=== PATIENT | male | born 1945 | race Caucasian/White ===

== ENCOUNTER 2020-07-07 16:35 | Emergency (ER) | payer MEDICARE, OTHER ==
[~2020-07-07] VITALS: Ht 177.8 cm; Wt 117.9 kg
== END 2020-07-07 20:15 | disposition home or self-care (01) ==
LOC: ER 18:13
DX: R50.9 Fever, unspecified (principal); R05 Cough; J40 Bronchitis, not specified as acute or chronic; I10 Essential (primary) hypertension; M10.9 Gout, unspecified
CPT/HCPCS: 71046

== ENCOUNTER 2020-09-05 11:21 | Emergency (ER) | payer MEDICARE, OTHER ==
[~2020-09-05] VITALS: Ht 177.8 cm; Wt 115.7 kg
[2020-09-05] MEDS ORDERED: IBUPROFEN 600 MG TAB PO STA (11:38)
[2020-09-05] MEDS ORDERED: CEFTRIAXONE 1 GM VIAL IM ONE (11:45)
[2020-09-05] MEDS ORDERED: IBUPROFEN IB200 MG PO (11:50)
[2020-09-05] MEDS ORDERED: CEFDINIR300 MG PO (11:50)
[2020-09-05] MEDS ORDERED: ACETAMINOPHEN500 MG PO (11:50)
[2020-09-05] MEDS ORDERED: CEFTRIAXONE 1 GM VIAL ONE (11:52)
== END 2020-09-05 12:21 | disposition home or self-care (01) ==
LOC: FSED 11:45
DX: R50.9 Fever, unspecified (principal); J02.0 Streptococcal pharyngitis; I10 Essential (primary) hypertension; M10.9 Gout, unspecified
CPT/HCPCS: 83518; 87400; 99283; J0696